=== PATIENT | male | born 1965 ===

== ENCOUNTER 2023-05-01 06:15 | Day surgery (SDC) | payer OTHER ==
[~2023-05-01] VITALS: Ht 188 cm; Wt 89.4 kg
[~2023-05-01 06:15] MED LIST: AMBIEN10 MG PO; COZAAR100 MG PO; NORVASC10 MG PO
[2023-05-01] MEDS ORDERED: PERCOCET 5-3251 EACH PO (15:46)
== END 2023-05-01 17:20 | disposition home or self-care (01) ==
LOC: CIR.AMB 06:15
PROVIDERS: ATTEND Surgery
DX: N52.01 Erectile dysfunction due to arterial insufficiency (principal); N52.9 Male erectile dysfunction, unspecified; Z88.6 Allergy status to analgesic agent; Z88.0 Allergy status to penicillin
CPT/HCPCS: 54405; C1813